=== PATIENT | male | born 1990 | race Caucasian/White ===

== ENCOUNTER 2021-07-11 06:09 | Emergency (ER) | payer BC, SELFPAY ==
--- NOTE | ~2021-07-11 | CT_ITS ---
EXAMINATION: CT abdomen pelvis wo con DATE: 07/11/2021 07:42 INDICATION: Right lower quadrant pain TECHNIQUE: Computed tomography (CT) of the abdomen and pelvis was performed without intravenous contr ast. The dose-length product (DLP) was 516.97 mGy-cm. Automated exposure control and iterative recons truction technique were employed. COMPARISON: None FINDINGS: The lung bases are clear. The heart size is normal. The liver, spleen, pancreas, gallbladde r, and adrenal glands are normal. There appears to be a punctate 1 mm stone in the urinary bladder. T here is subtle fat stranding surrounding the right ureter without hydronephrosis or hydroureter. No p athologically enlarged abdominal or pelvic lymph nodes are identified. There is no free intraperitone al gas or evidence of bowel obstruction. The appendix is normal. A tiny fat-containing umbilical brian ia is noted. IMPRESSION: 1. Findings suggestive of recent passage of a right-sided kidney stone with a likely 1 mm stone in th e urinary bladder. Reviewed, dictated and finalized at location A. HANDLER IMPRESSION: 1. Findings suggestive of recent passage of a right-sided kidney stone with a l ikely 1 mm stone in the urinary bladder.
[2021-07-11 06:14] VITALS: BP 137/87; PULSE 71; RESP 16; O2SAT 100
[2021-07-11 06:59] LABS: Basophils Percent Auto 0.3 % (0.2-1.2); Hemoglobin 15.6 g/dL (14.0-18.0); Immature Granulocyte Absolute 0.07 K/mm3 (0.00-0.031); Immature Granulocyte Percent A 0.6 % (0-0.5); Lymphocytes Absolute Auto 1.16 K/mm3 (0.9-3.2); Lymphocytes Percent Auto 9.5 % (18.3-44.2); Mean Corpuscular HGB Conc 34.7 g/dl (32-36); Mean Corpuscular Hemoglobin 28.3 pg (26-34); Mean Corpuscular Volume 81.5 fl (80-100); Mean Platelet Volume 10.6 fl (7.4-10.4); Monocytes Absolute Auto 0.5 K/mm3 (0.1-0.6); Monocytes Percent Auto 4.4 % (2.6-8.5); Neutrophils Absolute Auto 10.4 K/mm3 (1.3-6.7); Neutrophils Percent Auto 85.2 % (45.5-73.1); Platelet Count Result 276 k/mm3 (150-375); Red Blood Count 5.52 M/mm3 (4.6-6.20); Red Cell Distribution Width 13.3 % (11.5-14.5); White Blood Count 12.2 K/mm3 (4.5-10.0)
[2021-07-11 07:04] LABS: Add Urine Microscopic? YES; Appearance Urine Cloudy (Clear); Bilirubin Urine Negative (Negative); Blood Urine 3+ (Negative); Color Urine Yellow (Yellow); Glucose Urine UA Negative (Negative); Ketones Urine Negative (Negative); Leukocyte Esterase Ur Trace LEU/UL (Negative); Mucus Urine Heavy /lpf; Nitrate Urine Negative (Negative); Protein Urine 1+ mg/dL (Negative); RBC Urine 21-50 /hpf (0-2); Specific Grav Ur 1.026 (1.001-1.035); Urobilinogen Urine Negative mg/dL (<2.0)
[2021-07-11 07:11] LABS: Alanine Aminotransferase 23 U/L (4-50); Albumin Level 4.8 g/dL (3.5-5.1); Alkaline Phosphatase 54 U/L (38-126); Anion Gap 11 mmol/L (8-16); Aspartate Amino Transferase 26 U/L (17-59); Bilirubin,Total 0.6 mg/dL (0.2-1.3); Blood Urea Nitrogen 12 mg/dL (9-20); Calcium 9.6 mg/dL (8.4-10.2); Carbon Dioxide 28 mmol/L (22-30); Chloride 102 mmol/L (98-107); Estimated CRCL calculation 97 ml/min; Estimated Glomerular Filt Rate > 60; Glucose 134 mg/dL (65-110); Lipase 52 U/L (23-300); Potassium 4.1 mmol/L (3.4-5.0); Sodium 141 mmol/L (137-145)
--- NOTE | 2021-07-11 07:24 | ED.ABDPAIN ---
HPI - Abdominal Pain General Chief Complaint: Abdominal Pain Stated Complaint: right abd pain and vomiting Time Seen by Provider: 07/11/21 07:23 Source: patient Mode of arrival: ambulatory Limitations: no limitations History of Present Illness HPI narrative: 30 years old white male complaining of right abdominal pain that started last night, got worse at 4 AM. Associated with nausea and frequent vomiting. When I went see him in the room he was pain-free. Patient denies any history of abdominal surgery, fever, chills, diarrhea, constipation, urinary symptoms. Patient is not vaccinated. Related Data Allergies Allergy/AdvReac Type Severity Reaction Status Date / Time levofloxacin Allergy Unknown Hives / Verified 07/11/21 06:53 Red Face Review of Systems Review of Systems: CONSTITUTIONAL: Denies fever, chills, or sweats. EYES: Denies visual changes, redness, or discharge. ENT: Denies rhinorrhea, congestion, sore throat, or otalgia. CARDIOVASCULAR: Denies chest pain, palpitations, or edema. RESPIRATORY: Denies cough or dyspnea. GASTROINTESTINAL: Denies abdominal pain, nausea, vomiting, or diarrhea. GENITOURINARY: Denies dysuria or hematuria. SKIN: Denies rash or itching. MUSCULOSKELETAL: Denies back pain, joint pain, or myalgia. NEUROLOGIC: Denies headache, numbness, or weakness. PSYCHIATRIC: Denies anxiety or depression. Exam Narrative: General appearance: Well-developed, well-nourished Skin: Normal color Head: Normocephalic, nontraumatic Eyes: Clear conjunctiva ENT: Oropharynx normal, ears normal, nose normal Neck: Supple, nontender Chest and respiratory: Airway patent, no respiratory distress, no accessory muscle use Heart: Regular rate/rhythm Abdomen: Soft, nontender, no organomegaly, quiet bowel sounds Vascular: Normal peripheral pulses, normal capillary refill. 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, no gross motor deficit Course Course Emergency Course: Stable, resolved Vital Signs Vital signs: Vital Signs Pulse Rate 71 07/11/21 06:14 Respiratory Rate 16 07/11/21 06:14 Blood Pressure 137/87 07/11/21 06:14 Pulse Oximetry 100 07/11/21 06:14 Pulse Rate 71 07/11/21 06:14 Respiratory Rate 16 07/11/21 06:14 Blood Pressure 137/87 07/11/21 06:14 Pulse Oximetry 100 07/11/21 06:14 MDM - Abdominal Pain MDM Narrative Medical decision making narrative: Patient presents with right abdominal pain, differential diagnosis as below Differential Diagnosis Differential diagnosis: Likely acute appendicitis, calculus of kidney, constipation and diverticulitis Lab Data Result diagrams: 07/11/21 06:48 07/11/21 06:48 Labs: Lab Results 07/11/21 07/11/21 07/11/21 Range/Units 06:48 06:48 06:48 WBC 12.2 H (4.5-10.0) K/mm3 RBC 5.52 (4.6-6.20) M/mm3 Hgb 15.6 (14.0-18.0) g/dL Hct 45.0 (42.0-52.0) % MCV 81.5 (80-100) fl MCH 28.3 (26-34) pg MCHC 34.7 (32-36) g/dl RDW 13.3 (11.5-14.5) % Plt Count 276 (150-375) k/mm3 MPV 10.6 H (7.4-10.4) fl Immature Gran % (Auto) 0.6 H (0-0.5) % Neut % (Auto) 85.2 H (45.5-73.1) % Lymph % (Auto) 9.5 L (18.3-44.2) % Edgar % (Auto) 4.4 (2.6-8.5) % Eos % (Auto) 0.0 (0-4.4) % Baso % (Auto) 0.3 (0.2-1.2) % Lymph # (Auto) 1.16 (0.9-3.2) K/mm3 Edgar # (Auto) 0.5 (0.1-0.6) K/mm3 Eos # (Auto) 0.0 (0-0.3) K/mm3 Baso # (Auto) 0.0 (0.0-0.1) K/mm3 Abs Immat Gran (auto) 0.07 H (0.00-0.031) K/mm3 Absolute Neuts (auto) 10.4 H (1.3-6.7) K/mm3 Absolute Nucleated RBC 0.0 (0.0-0.012) K/m
[2021-07-11] MEDS: TAMSULOSIN HCL 0.4 MG CAPSULE PO (08:30)
== END 2021-07-11 09:02 | disposition home or self-care (01) ==
PROVIDERS: General Practice; Emergency Provider Emergency Medicine
DX: N20.0 Calculus of kidney (principal)
CPT/HCPCS: 36415; 74176; 80053; 81001; 83690; 85025; 87086; 87088; 99284; A9270